=== PATIENT | female | born 1985 | race African-American/Black ===

== ENCOUNTER 2016-08-28 07:09 | Emergency (ER) | payer MEDICAID ==
[~2016-08-28] VITALS: Ht 162.6 cm; Wt 75.0 kg
[~2016-08-28 07:09] MED LIST: NAPR-681 PO
[2016-08-28] MEDS ORDERED: ALBUTEROL (0.5%) 2.5MG/0.5ML NEB HHN ONE (11:15)
[2016-08-28] MEDS ORDERED: ALBUTEROL (0.083%) 2.5MG/3ML NEB ONE (11:29)
[2016-08-28 13:20] VITALS: BP 128/81
== END 2016-08-28 14:06 | disposition home or self-care (01) ==
LOC: ER 07:30
DX: J40 Bronchitis, not specified as acute or chronic (principal); F12.10 Cannabis abuse, uncomplicated; Z98.890 Other specified postprocedural states
CPT/HCPCS: 71020; 81025; 93005; 94640; 99284; J7611